=== PATIENT | female | born 1990 | race Hispanic/Latino ===

== ENCOUNTER 2018-12-13 22:25 | Day surgery (SDC) | payer BC ==
[2018-12-13 22:57] VITALS: BP 138/77; TEMP 98.6; BMI 40.2
--- NOTE | 2018-12-14 13:35 | HP ---
PRIMARY OB: Shyla Carrera MD CHIEF COMPLAINT: Decreased movement. HISTORY OF PRESENT ILLNESS: The patient is a 28-year-old, G2, P0 female with an intrauterine at 37 weeks and 6 days, who is presenting to Labor and Delivery with reports of decreased movement. She reports she had not felt the baby move all day and was getting worried, so came for evaluation. Upon presentation to registration, she began feeling her baby move again. The patient reports intermittent uterine contractions. Denies any leakage of fluid or vaginal bleeding. Denies any recent fever, illness, or other complaints. PAST MEDICAL HISTORY: Negative. PAST SURGICAL HISTORY: Negative. ALLERGIES: PENICILLIN, AMOXICILLIN, ERYTHROMYCIN. MEDICATIONS: vitamins. OB LABS: Unavailable at time of dictation. SOCIAL HISTORY: Denies drug, alcohol, or tobacco use. PAST SURGICAL HISTORY: Cholecystectomy and knee repair. PHYSICAL EXAMINATION: VITAL SIGNS: Blood pressure of 138/77, heart rate of 77, respiratory rate of 20, saturating of 97% on room air, temperature of 98.6. GENERAL: She appears to be in no acute distress. She is alert, oriented, cooperative, and pleasant to interact with. HEAD: Normocephalic and atraumatic. LUNGS: Clear to auscultation bilaterally. HEART: Has regular rate and rhythm. ABDOMEN: Gravid and soft. EXTREMITIES: Nontender, nonedematous. : Has been deferred. heart tracing. Her NST for decreased movement shows fetus with a baseline in the 130s with moderate long-term variability, positive 15 x 15 accelerations, no decelerations. The tocometer shows irritability with occasional contractions. ASSESSMENT AND PLAN: The patient is a 28-year-old female with an intrauterine at 37 weeks and 6 days, here for decreased movement and a reactive NST. The patient has been given reassurance, is being discharged to home as followup with her primary OB, Dr. Carrera. In our conversation, the patient also reports that she is being worked up for cholestasis of because she is having itching on the soles of her feet. Lab work was unavailable on Friday at time of the visit. I did ask her to call the office early this next week to follow up on her lab results. Job ID: [id number]
== END 2018-12-13 23:33 | disposition home or self-care (01) ==
LOC: L&D/OP 22:25
PROVIDERS: ATTEND Student in an Organized Health Care Education/Training Program
DX: O36.8130 Decreased fetal movements, third trimester, not applicable or unspecified (principal); O36.8330 Maternal care for abnormalities of the fetal heart rate or rhythm, third trimester, not applicable or unspecified; Z88.0 Allergy status to penicillin; Z3A.37 37 weeks gestation of pregnancy; Z79.899 Other long term (current) drug therapy
CPT/HCPCS: 99282

== ENCOUNTER 2018-12-17 12:22 | Inpatient (IN) | payer BC ==
[~2018-12-17 12:22] MED LIST: Bupivacaine PF 0.5% 30 ML VIAL ONE; Lidocaine 2% MPF 10 ML AMP (For Epidural Use) ONE
[2018-12-17] MEDS ORDERED: Diphenoxylate HCl/Atropine Tablet PO PRN (13:11)
[2018-12-17] MEDS ORDERED: Ibuprofen 800 MG TAB PO PRN (13:11)
[2018-12-17] MEDS ORDERED: Acetaminophen 500 MG TAB PO PRN (13:11)
[2018-12-17] MEDS ORDERED: HYDROcodone/Acetaminophen 5/325 mg Tablet PO PRN (13:11)
[2018-12-17] MEDS ORDERED: Butorphanol Tartrate 1 MG/ML VIAL SLOW IVP PRN (13:11)
[2018-12-17] MEDS ORDERED: Misoprostol 200 MCG TAB PR PRN (13:11)
[2018-12-17] MEDS ORDERED: Carboprost 250 MCG/ML AMP IM PRN (13:11)
[2018-12-17] MEDS ORDERED: Lidocaine 1% (PF) 30 ML VIAL SC PRN (13:11)
[2018-12-17] MEDS ORDERED: Methylergonovine 0.2 MG/ML VIAL IM PRN (13:11)
[2018-12-17] MEDS ORDERED: NS / Oxytocin 40 units/1000ml 1,000 ML IV PRN (13:11)
[2018-12-17] MEDS ORDERED: Ondansetron PF 4 MG/2 ML Vial IVP PRN ×2 (13:11→18:54)
[2018-12-17] MEDS ORDERED: Promethazine HCl 25 MG/ML VIAL IM PRN ×2 (13:11→18:54)
--- NOTE | 2018-12-17 13:15 | PDOC.LDHP ---
Labor and Delivery H&P Chief complaint: other (elevated LFT, itching, likely cholestasis) HPI: 19yo at 38w2d by LMP here for IOL due to elevated LFTs and itching palms and soles. also has some new RUQ dull pain. No labor complaints. Current gestational age (weeks): 38 Due date: 12/29/18 Dating criteria: last menstrual period Grav: 2 Para: 0 OB History Details: hx of bleeding cervical polyp in early , s/p removal Current complications: other (suspected cholestasis, anemia) Abnormal US findings: No (EFW 95%ile at 35wk) Past Medical History: hypothyroid, obesity. Current medications: pre- vitamins, other (levothyroxine) Previous surgical history: cholecystectomy, other (meniscus repair) Allergies/Adverse Reactions: Allergies Allergy/AdvReac Type Severity Reaction Status Date / Time amoxicillin Allergy Verified 12/13/18 22:49 erythromycin base Allergy Verified 12/13/18 22:49 [From [facility] Penicillins Allergy Verified 12/13/18 22:49 Social history: none - Physical Exam Vital signs reviewed and normal: yes General: NAD Heart: RRR Lungs: CTAB Abdomen: gravid Extremeties: no edema FHT: category 1 [place] contractions every: 5min - Vaginal Exam cm dilated: 4 Effacement: 50% Station: -2 (arom clear) - OB Labs RH: positive Antibody Screen: negative HIV: negative RPR: negative HEPSAg: negative 1 hour GCT: positive 3 hour GTT: negative GBS: negative Urine drug screen: negative Rubella: immune - Assessment L&D Assessment: medically indicated induction - Plan Plan: admit to L&D, labor augmentation if indicated, informed consent obtained, anesthesia consult for pain management -: recheck LFTs, bile acids from last week pending.
[2018-12-17 13:27] LABS: Hemoglobin 10.4 g/dL (12.0-16.0); Mean Corpuscular HGB CONC 33.3 g/dL (32.0-36.0); Mean Corpuscular Hemoglobin 28.5 pg (27.0-31.0); Mean Corpuscular Volume 85.5 fL (78.0-98.0); Mean Platelet Volume 7.9 fL (7.4-10.4); Platelet Count 330 thou/uL (130-400); RBC Distribution Width 14.5 % (11.5-14.5); Red Blood Cell (RBC) Count 3.66 mill/uL (4.20-5.40); White Blood Cell (WBC) Count 8.9 thou/uL (4.8-10.8)
[2018-12-17 14:04] LABS: ALT (SGPT) 43 U/L (8-55); AST (SGOT) 32 U/L (5-34); Albumin 3.8 g/dL (3.5-5.0); Alkaline Phosphatase 172 U/L (40-150); Anion Gap 17 mmol/L (10-20); BUN (Urea Nitrogen) 9 mg/dL (7.0-18.7); Bilirubin, Total 0.4 mg/dL (0.2-1.2); Calc. Creatinine Clearance 190 mL/min (70-130); Calcium 9.7 mg/dL (7.8-10.44); Carbon Dioxide 18 mmol/L (22-29); Chloride 106 mmol/L (98-107); Estimated GFR-MDRD Greater than 90; Globulin 2.9 g/dL (2.4-3.5); Glucose 89 mg/dL (70-105); Potassium 4.5 mmol/L (3.5-5.1); Protein, Total 6.7 g/dL (6.0-8.3); Sodium 136 mmol/L (136-145)
[2018-12-17 14:13] LABS: Syphilis Antibody Nonreactive (Nonreactive); Syphilis Antibody Index 0.11 S/CO (<1.00 Non-Reactive)
[2018-12-17 14:14] LABS: HBSAg Index 0.29 S/CO (0-0.99); Hep B Surf Ag Non-Reactive S/CO (NonReactive)
[2018-12-17] MEDS ORDERED: Fentanyl 4 mcg/Bup 0.1% Cadd 100 ML ONE (18:10)
[2018-12-17] MEDS ORDERED: Fentanyl 100 MCG/2 ML VIAL ONE (18:29)
[2018-12-17] MEDS ORDERED: Bupivacaine 0.5% 10 ML VIAL ONE (18:29)
[2018-12-17] MEDS ORDERED: Acetaminophen 325 MG TAB PO PRN (18:54)
[2018-12-17] MEDS ORDERED: diphenhydrAMINE 50 MG/ML VIAL IVP PRN (18:54)
[2018-12-17] MEDS ORDERED: Naloxone HCl 0.4 mg/ml Vial IVP PRN ×2 (18:54)
[2018-12-17] MEDS ORDERED: ePHEDrine/0.9% NaCl/PF SYRINGE 50 mg/10 ml SLOW IVP PRN (18:54)
[2018-12-17] MEDS ORDERED: Lactated Ringer's 500 ML IV PRN (18:54)
[2018-12-17] MEDS ORDERED: Fentanyl 100 MCG/2 ML VIAL I-THECAL ONE (18:56)
[2018-12-17] MEDS ORDERED: Bupivacaine 0.25% 10 ML VIAL EPIDURAL ONE (18:57)
[2018-12-17] MEDS ORDERED: Fentanyl 4 mcg/Bupivacaine 0.1% Cassette 100 ML EPIDURAL SCH (19:00)
[2018-12-17] MEDS ORDERED: Communication Order-Pharmacy FS SCH (19:00)
[2018-12-17] MEDS: Lactated Ringer's 1,000 ML IV SCH (21:52)
[2018-12-18] MEDS ORDERED: Fentanyl 4 mcg/Bup 0.1% Cadd 100 ML ONE (01:49)
[2018-12-18] MEDS ORDERED: Clindamycin/D5W 900 mg/50 ml Premix Bag ONE (04:11)
[2018-12-18] MEDS ORDERED: Lidocaine 2% 10 ML INJ ONE (04:18)
[2018-12-18] MEDS ORDERED: Oxytocin 10 UNITS/ML VIAL ONE (04:18)
[2018-12-18] MEDS ORDERED: ePHEDrine/0.9% NaCl/PF SYRINGE 50 mg/10 ml ONE (04:21)
[2018-12-18] MEDS ORDERED: MORPHINE 5 MG/10 ML PF VIAL ONE (04:21)
--- NOTE | 2018-12-18 04:21 | PDOC.LDPN ---
Labor & Delivery Progress Note - Subjective Subjective: comfortable - Objective Vital signs reviewed and normal: yes General: NAD Uterine fundus: non tender Dilation: 7 Effacement: 90% Station: -1 FHT: category 2, late decelerations [place] contractions every: 3min -: Pt has been 6-7cm since 7pm last night with adequate uterine contractions by MVU > 200. Dispo for PCS based on AOAP and NRFHT with recurrent late decelerations. Pt agrees. Disc risks benefits with pt and .
[2018-12-18] MEDS ORDERED: Azithromycin 500 MG VIAL ONE (04:23)
[2018-12-18] MEDS ORDERED: CEFAZOLIN 2 GM in Premix Bag 1 BAG IVPB SCH (04:30)
[2018-12-18] MEDS ORDERED: Bicitra 30 ML UDCUP PO SCH (04:30)
[2018-12-18] MEDS ORDERED: Azithromycin 500 MG in Sodium Chloride 0.9% 250 ML 250 ML IVPB SCH (04:30)
[2018-12-18] MEDS ORDERED: Ondansetron PF 4 MG/2 ML Vial ONE ×2 (04:33→13:01)
[2018-12-18] MEDS ORDERED: Acetaminophen 1,000 MG in Premix Bag 1 BAG IVPB PRN (04:40)
[2018-12-18] MEDS ORDERED: Ondansetron HCl/PF 4 MG/2 ML Vial IVP PRN (04:42)
[2018-12-18] MEDS ORDERED: Promethazine HCl 25 MG SUPP PR PRN (04:42)
[2018-12-18] MEDS ORDERED: Ondansetron PF 4 MG/2 ML Vial IVP PRN ×2 (04:42→07:32)
[2018-12-18] MEDS ORDERED: Naloxone HCl 0.4 mg/ml Vial IVP PRN ×2 (04:42)
[2018-12-18] MEDS ORDERED: Promethazine HCl 25 MG/ML VIAL IM PRN ×2 (04:42→07:32)
[2018-12-18] MEDS ORDERED: Naloxone HCl 0.4 mg/ml Vial IV PRN (04:42)
[2018-12-18] MEDS ORDERED: diphenhydrAMINE 50 MG/ML VIAL IVP PRN (04:42)
[2018-12-18] MEDS ORDERED: Ketorolac Tromethamine 30 MG/ML VIAL IVP SCH (04:45)
[2018-12-18] MEDS ORDERED: Communication Order-Pharmacy FS SCH (04:45)
[2018-12-18] MEDS ORDERED: Fentanyl 100 MCG/2 ML VIAL ONE (05:01)
--- NOTE | 2018-12-18 05:16 | PDOC.OPDEL ---
OB Operative/Delivery Note Delivery Dr/Surgeon: Debi Assist: Cassi, PGY3 Pre-Delivery Diagnosis: arrest of dilation, non-reassuring tracing (38w IUP, cholestasis) Procedure/Post Delivery Dx: primary low transverse CS Weeks gestation: 38 Anesthesia: epidural - Findings A Sex: male Weight: 8 lb 5 oz - 1 min: 9 - 5 min: 9 - Additional Findings/Plan Placenta delivered: spontaneous findings: low transverse hysterotomy without extension, normal uterus, normal tubes, other (left ovary with fibrotic 3cm lesion, removed and sent to pathology) Estimated blood loss: 500 Compilations/Other Findings: NC x 1 Post delivery plan: routine recovery
[2018-12-18] MEDS: Ketorolac Tromethamine 30 MG/ML VIAL IVP SCH ×3 (05:31→20:47)
--- NOTE | 2018-12-18 05:48 | OP ---
DATE OF PROCEDURE: 12/18/2018 PREOPERATIVE DIAGNOSES: 1. Intrauterine at 38 weeks and 3 days. 2. Cholestasis of . 3. Arrest of active phase at 7 cm. 4. Non-reassuring heart tones. POSTOPERATIVE DIAGNOSES: 1. Intrauterine at 38 weeks and 3 days. 2. Cholestasis of . 3. Arrest of active phase at 7 cm. 4. Non-reassuring heart tones. 5. Left ovarian mass. PROCEDURE PERFORMED: Primary low transverse section via Pfannenstiel skin incision. ANESTHESIA: Epidural. 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 ESTIMATED BLOOD LOSS: 500 mL. COMPLICATIONS: None. DRAINS: Smith catheter. PATHOLOGY: Left ovarian mass. FINDINGS: Male infant, cephalic presentation, OP. Clear amniotic fluid. Weight 8 pounds 5 ounces. Apgars 9 and 9. Normal uterus, normal tubes bilaterally, and normal right ovary. Left ovary with 3 cm fibrotic mass off the antimesenteric border. OPERATIVE TECHNIQUE: The patient was taken to the operating room, where epidural anesthesia was found to be adequate. The patient was prepped and draped in a sterile fashion in the dorsal supine position with a leftward tilt. After ensuring adequacy of anesthesia, a Pfannenstiel skin incision was made and carried down to the underlying subcutaneous tissue with the Bovie. The fascia was nicked in midline with the Bovie and carried laterally with the Mendoza. An arterial bleed off the rectus was encountered on the patient's left side that was hemostatic after the use of the hemostats with Bovie cautery. The superior aspect of the fascia was tented with two Ana Luisa's and dissected off the rectus with Mendoza scissors. The inferior aspect of the fascia was tented with two Ana Luisa's and dissected off the rectus down of the pubic symphysis. The rectus was bluntly divided in the midline and the peritoneum was bluntly entered into. Tye O retractor was placed and bladder flap was created with Metzenbaum. The lower uterine segment was incised in a transverse fashion and extended with Sands maneuver. The 's head was brought to the hysterotomy and delivered atraumatically followed by the body. Delayed cord clamping was performed. The 's cord was clamped and handed to awaiting [facility] team. Cord blood was obtained and placenta was allowed to spontaneously deliver. The uterus was exteriorized, cleared of all clots and debris. At that time, the fibrotic ovarian lesion was noted. This had a yellow appearance to it. This was easily dissected off the left ovary with the use of Bovie cautery after grasping with a Inna clamp. Hemostasis was noted to be excellent and sent for final pathology. The uterus was placed back into the abdomen and the hysterotomy was repaired with a #1 Monocryl in a running locking fashion. A second horizontal imbricating layer was placed with #1 Monocryl and hemostasis was noted to be excellent. Copious irrigation of the pelvis was performed and suctioned. Hemostasis was again noted. The Tye O retractor was removed. The rectus muscles were examined and noted to be hemostatic. The fascia was reapproximated with a 0 PDS x2 sutures with excellent reapproximation. The subcutaneous tissue was irrigated and cauterized of any bleeders and reapproximated with 2-0 plain gut in a running fashion. The skin was closed with 4-0 Monocryl in a subcuticular fashion. Dermabond was applied. The patient tolerated the procedure well. Sponge and needle counts were correct x2. The patient was taken to recovery in stable condition. The patient received Ancef 2 g and azithromycin 500 mg during the procedure. Job ID: [id number]
[2018-12-18] MEDS ORDERED: Bisacodyl 10 MG SUPP PR PRN (07:32)
[2018-12-18] MEDS ORDERED: diphenhydrAMINE 25 MG CAP PO PRN (07:32)
[2018-12-18] MEDS ORDERED: Lanolin Ointment 7 GM TUBE TOP PRN (07:32)
[2018-12-18] MEDS ORDERED: Adacel (T-DAP) 0.5 ML SYRINGE IM ONE (07:32)
[2018-12-18] MEDS ORDERED: Acetaminophen 325 MG TAB PO PRN (07:32)
[2018-12-18] MEDS ORDERED: Levothyroxine Sodium 125 MCG TAB PO SCH (08:00)
[2018-12-18] MEDS: Levothyroxine Sodium 125 MCG TAB PO SCH (09:11)
[2018-12-18] MEDS: Prenatal Vitamin 1 TAB PO SCH (09:15)
[2018-12-18] MEDS: Docusate Calcium (SURFAK) 240 MG CAP PO SCH (09:15)
[2018-12-18] MEDS: NS w/ Oxytocin 10 units 500 ML IV SCH (17:28)
[2018-12-18] MEDS: Ferrous Sulfate 325 MG TAB PO SCH ×2 (17:34→17:42)
[2018-12-18] MEDS ORDERED: HYDROcodone/Acetaminophen 5/325 mg Tablet PO PRN (20:47)
[2018-12-19] MEDS: Lactated Ringer's 1,000 ML IV SCH ×3 (02:11→21:20)
[2018-12-19] MEDS: Docusate Calcium (SURFAK) 240 MG CAP PO SCH ×3 (02:12→21:24)
[2018-12-19] MEDS: Ibuprofen 800 MG TAB PO SCH ×3 (06:10→21:23)
[2018-12-19 06:13] LABS: Mean Corpuscular Volume 85.9 fL (78.0-98.0)
[2018-12-19 06:25] LABS: Hemoglobin 8.9 g/dL (12.0-16.0); Mean Corpuscular HGB CONC 33.5 g/dL (32.0-36.0); Mean Corpuscular Hemoglobin 28.8 pg (27.0-31.0); Mean Platelet Volume 7.2 fL (7.4-10.4); Platelet Count 271 thou/uL (130-400); RBC Distribution Width 14.4 % (11.5-14.5); Red Blood Cell (RBC) Count 3.09 mill/uL (4.20-5.40); White Blood Cell (WBC) Count 11.3 thou/uL (4.8-10.8)
--- NOTE | 2018-12-19 08:03 | PRG ---
DATE OF SERVICE: 12/19/2018 PRIMARY OB: Shyla Carrera MD SUBJECTIVE: The patient is a 28-year-old female, postop day #1, status post a primary for arrest of labor. The patient reports that she is tolerating p.o. well. She has been up ambulating and voiding on her own and having decent pain control. OBJECTIVE: VITAL SIGNS: Blood pressure 89/54, temperature 98.4, pulse of 88, respiratory rate 18, and saturating 98% on room air. Of note, the blood pressure was taken when the patient had been sleeping. Blood pressure prior to that was 114/57. GENERAL: The patient appears to be in no acute distress. She is alert, oriented, cooperative, and pleasant to interact with. HEENT: Head is normocephalic and atraumatic. Fundus is firm. Incision is clean, dry, and intact. EXTREMITIES: Nontender with minimal edema and symmetrical. LABORATORY DATA: Her post delivery hemoglobin is 8.9 and hematocrit 26.6, down from 10.4 and 31.3 preoperatively. ASSESSMENT AND PLAN: The patient is a 28-year-old female, postoperative day #1, status post a primary section for arrest of labor. She has a baseline anemia with worsened anemia with appropriate drop after the section. The patient is asymptomatic at this time and is currently on iron. The patient will continue postoperative care with anticipation of discharge in the next couple of days. Job ID: [id number]
[2018-12-19] MEDS: Ferrous Sulfate 325 MG TAB PO SCH ×2 (09:50→17:16)
[2018-12-19] MEDS: Prenatal Vitamin 1 TAB PO SCH (09:50)
[2018-12-19] MEDS: Simethicone Chewable 80 MG TAB PO PRN (09:50)
[2018-12-19] MEDS: HYDROcodone/Acetaminophen 5/325 mg Tablet PO PRN (09:50)
[2018-12-19] MEDS: Levothyroxine Sodium 125 MCG TAB PO SCH (14:11)
[2018-12-19] MEDS: NS w/ Oxytocin 10 units 500 ML IV SCH (18:01)
[2018-12-20] MEDS: HYDROcodone/Acetaminophen 5/325 mg Tablet PO PRN (04:03)
[2018-12-20] MEDS: Lactated Ringer's 1,000 ML IV SCH ×4 (05:59→21:58)
[2018-12-20] MEDS: Levothyroxine Sodium 125 MCG TAB PO SCH (06:09)
[2018-12-20] MEDS: Ibuprofen 800 MG TAB PO SCH ×3 (06:09→21:13)
[2018-12-20] MEDS: Docusate Calcium (SURFAK) 240 MG CAP PO SCH ×2 (08:30→21:13)
[2018-12-20] MEDS: Ferrous Sulfate 325 MG TAB PO SCH ×2 (08:30→19:04)
[2018-12-20] MEDS: Prenatal Vitamin 1 TAB PO SCH (08:30)
[2018-12-20] MEDS: NS w/ Oxytocin 10 units 500 ML IV SCH ×2 (19:03→19:05)
[2018-12-20] MEDS: Ketorolac Tromethamine 30 MG/ML VIAL IVP SCH (19:11)
[2018-12-20] MEDS: Simethicone Chewable 80 MG TAB PO PRN (21:13)
[2018-12-21] MEDS: Ibuprofen 800 MG TAB PO SCH (06:00)
[2018-12-21] MEDS: Levothyroxine Sodium 125 MCG TAB PO SCH (06:00)
[2018-12-21] MEDS: HYDROcodone/Acetaminophen 5/325 mg Tablet PO PRN (06:02)
--- NOTE | 2018-12-21 08:07 | PDOC.PP ---
Post Progress Note Post Day #: 3 PO intake tolerated: yes Flatus: yes Ambulation: yes Weight Weight 205 lb - Physical Examination General: NAD Respiratory: non-labored breathing Abdominal: no distention, appropriately TTP Fundus firm & at: umb-2 Skin: CS incision dry & intact, no rash Neurological: no gross focal deficits Psychiatric: normal affect Result Diagrams: 12/19/18 05:55 12/17/18 13:02 Additional Labs: Post Labs Blood Type O POSITIVE 12/17/18 14:10 Hep Bs Antigen Non-Reactive S/CO (NonReactive) 12/17/18 13:02 - Assessment/Plan POD3 s/p PCS for NRFHT, AOAP VSSAF Hgb 10-->qbl 388cc-->hgb 8.9, appropriate drop, acute surgical blood loss on chronic iron def anemia, no s/sx, cont iron supp on DC Met all postop milestones Rh pos RImm DC home FU 2w for inc check
[2018-12-21 08:16] VITALS: BP 131/66; TEMP 97.6
[2018-12-21] MEDS: Docusate Calcium (SURFAK) 240 MG CAP PO SCH (09:10)
[2018-12-21] MEDS: Ferrous Sulfate 325 MG TAB PO SCH (09:10)
[2018-12-21] MEDS: Prenatal Vitamin 1 TAB PO SCH (09:10)
== END 2018-12-21 13:43 | disposition home or self-care (01) | DRG 786 ==
LOC: L&D 12:22 → 3SW 12-18 08:03
PROVIDERS: ADMIT Student in an Organized Health Care Education/Training Program; ATTEND Student in an Organized Health Care Education/Training Program
PROC: 10D00Z1 Extraction of Products of Conception, Low, Open Approach (ICD-10-PCS; principal; 2018-12-18)
DX: O62.1 Secondary uterine inertia (principal); K83.1 Obstruction of bile duct; D62 Acute posthemorrhagic anemia; O26.62 Liver and biliary tract disorders in childbirth; O76 Abnormality in fetal heart rate and rhythm complicating labor and delivery; Z37.0 Single live birth; O69.81X0 Labor and delivery complicated by cord around neck, without compression, not applicable or unspecified; O99.02 Anemia complicating childbirth; Z3A.38 38 weeks gestation of pregnancy
CPT/HCPCS: 36415; 51702; 80053; 85027; 86780; 86850; 86900; 86901; 87340; 88305; J0131; J0456; J0690; J1885; J2001; J2270; J2405; J2590; J3010; J3490; Q0163; S0020

== ENCOUNTER 2020-04-14 08:17 | Outpatient (CLI) | payer BC, OTHER ==
[2020-04-15 14:53] LABS: SARS-CoV-2 MS2 Positive; SARS-CoV-2 N Gene Negative; SARS-CoV-2 S Gene Negative; SARS-CoV-2 by NAA Not Detected (NotDetected); SARS-CoV-2 orf1ab Negative
== END 2020-04-14 08:18 | disposition home or self-care (01) ==
LOC: LABBT 08:17
PROVIDERS: ATTEND Student in an Organized Health Care Education/Training Program
DX: Z20.828 Contact with and (suspected) exposure to other viral communicable diseases (principal)
CPT/HCPCS: 87635; U0003

== ENCOUNTER 2020-12-26 23:42 | Emergency (ER) | payer BC, OTHER ==
[2020-12-27 00:18] LABS: #Basophils 0.1 thou/uL (0.0-0.2); #Eosinphils 0.1 thou/uL (0.0-0.7); #Lymphocytes 1.7 thou/uL (1.20-3.40); #Monocytes 0.5 thou/uL (0.11-0.59); %Basophils 0.6 % (0.0-1.0); %Eosinophils 1.4 % (0.0-10.0); %Lymphocytes 18.1 % (21.0-51.0); %Monocytes 5.3 % (0.0-10.0); %Neutrophils 74.6 % (42.0-75.0); Hemoglobin 12.2 g/dL (12.0-16.0); Mean Corpuscular HGB CONC 35.1 g/dL (32.0-36.0); Mean Corpuscular Hemoglobin 30.8 pg (27.0-31.0); Mean Corpuscular Volume 87.9 fL (78.0-98.0); Mean Platelet Volume 7.1 fL (7.4-10.4); Platelet Count 278 thou/uL (130-400); RBC Distribution Width 12.4 % (11.5-14.5); Red Blood Cell (RBC) Count 3.97 mill/uL (4.20-5.40); White Blood Cell (WBC) Count 9.4 thou/uL (4.8-10.8)
[2020-12-27 00:29] LABS: PTT 29.6 sec (22.9-36.1); Prothrombin Time 12.8 sec (12.0-14.7)
[2020-12-27] MEDS ORDERED: Piperacillin/Tazobactam 3.375 GM VIAL ONE (00:32)
[2020-12-27 00:39] LABS: ALT (SGPT) 54 U/L (8-55); AST (SGOT) 37 U/L (5-34); Albumin 4.6 g/dL (3.5-5.0); Alkaline Phosphatase 125 U/L (40-110); Anion Gap 15 mmol/L (10-20); BUN (Urea Nitrogen) 10 mg/dL (7.0-18.7); Bilirubin, Total 0.5 mg/dL (0.2-1.2); Calc. Creatinine Clearance 0 mL/min (70-130); Calcium 9.2 mg/dL (7.8-10.44); Carbon Dioxide 21 mmol/L (22-29); Chloride 105 mmol/L (98-107); Globulin 3.7 g/dL (2.4-3.5); Glucose 114 mg/dL (70-105); Potassium 3.5 mmol/L (3.5-5.1); Protein, Total 8.3 g/dL (6.0-8.3); Sodium 137 mmol/L (136-145)
[2020-12-27 00:48] LABS: BHCG - Serum Negative (NEGATIVE); Pregs Control Background? CLEAR/WHITE (CLR/WHITE); Pregs Control Bar Appear? YES (CONTROL BAR)
[2020-12-27 02:45] LABS: Bilirubin Negative (Negative); Blood, Urine Moderate (Negative); Glucose, Urine (Dipstick) Negative (Negative); Ketone, Urine Negative (Negative); Leukocyte Negative (Negative); Nitrite Negative (Negative); Protein, Urine (Dipstick) Negative (Neg-Trace); Urobilinogen 0.2 mg/dL (Less than 2)
[2020-12-27 02:49] LABS: Bacteria/HPF None Seen HPF (None Seen); Squamous Epithelial None Seen HPF (0-3); WBC/HPF 0-3 HPF (0-3)
[2020-12-27 02:50] LABS: Clarity Clear (Clear); Specific Gravity, Urine 1.042 (1.002-1.036)
[2020-12-27] MEDS ORDERED: Iopamidol-370 76% 500 ML 1 ML ONE (10:15)
== END 2020-12-27 03:30 | disposition home or self-care (01) ==
LOC: ERS 23:42
DX: R10.11 Right upper quadrant pain (principal); R50.9 Fever, unspecified; Z79.899 Other long term (current) drug therapy; Z87.891 Personal history of nicotine dependence
CPT/HCPCS: 36415; 74177; 80053; 81003; 81015; 83605; 83690; 84703; 85025; 85610; 85730; 87040; 87086; 93005; 94760; 96365; 96366; J2543; Q9967

== ENCOUNTER 2020-12-29 07:26 | Outpatient (CLI) | payer BC, OTHER | END 2020-12-29 07:27 | disposition home or self-care (01) | LOC: ULT 07:26 | PROVIDERS: ATTEND Physician Assistant | DX: R10.11 Right upper quadrant pain (principal); K76.0 Fatty (change of) liver, not elsewhere classified; Z90.49 Acquired absence of other specified parts of digestive tract | CPT/HCPCS: 76705 ==

== ENCOUNTER 2021-05-25 10:35 | Outpatient (CLI) | payer BC, OTHER ==
[2021-05-25] MEDS ORDERED: Iopamidol 370 76% 50 ML VIAL FS ONE (12:05)
[2021-05-25] MEDS ORDERED: Iopamidol 370 76% 100 ML VIAL ONE (12:05)
== END 2021-05-25 10:36 | disposition home or self-care (01) ==
LOC: CT 10:35
PROVIDERS: ATTEND Family Medicine
DX: R10.32 Left lower quadrant pain (principal); K76.0 Fatty (change of) liver, not elsewhere classified; K42.9 Umbilical hernia without obstruction or gangrene
CPT/HCPCS: 74177; Q9967

== ENCOUNTER 2022-07-13 11:47 | Emergency (ER) | payer BC ==
[2022-07-13] MEDS ORDERED: Ibuprofen 800 MG TAB ONE (12:36)
[2022-07-13 15:24] LABS: SARS-CoV-2 NAA Rapid Test Not Detected (NotDetected)
== END 2022-07-13 15:43 | disposition home or self-care (01) ==
LOC: ERS 11:47
DX: J10.1 Influenza due to other identified influenza virus with other respiratory manifestations (principal); E03.9 Hypothyroidism, unspecified; Z79.899 Other long term (current) drug therapy; Z20.822 Contact with and (suspected) exposure to COVID-19
CPT/HCPCS: 71045